=== PATIENT | male | born 1955 | race Caucasian/White ===

== ENCOUNTER → 2020-02-28 | Outpatient (CLI) | payer BC | END | disposition home or self-care (01) | LOC: US 07:22 | PROVIDERS: ATTEND Internal Medicine Interventional Cardiology | DX: I16.0 Hypertensive urgency (principal); I12.9 Hypertensive chronic kidney disease with stage 1 through stage 4 chronic kidney disease, or unspecified chronic kidney disease; N18.9 Chronic kidney disease, unspecified; I70.1 Atherosclerosis of renal artery; N28.1 Cyst of kidney, acquired | CPT/HCPCS: 76770; 93976 ==

== ENCOUNTER 2021-10-13 08:40 | Outpatient (RCR) | payer MEDICARE, OTHER | END 2021-10-28 | disposition home or self-care (01) | LOC: WCC 08:40 | PROVIDERS: ATTEND Family Medicine | DX: C09.9 Malignant neoplasm of tonsil, unspecified (principal); M27.2 Inflammatory conditions of jaws; Y84.2 Radiological procedure and radiotherapy as the cause of abnormal reaction of the patient, or of later complication, without mention of misadventure at the time of the procedure; N18.30 Chronic kidney disease, stage 3 unspecified; I10 Essential (primary) hypertension; I26.99 Other pulmonary embolism without acute cor pulmonale; E78.5 Hyperlipidemia, unspecified; I69.951 Hemiplegia and hemiparesis following unspecified cerebrovascular disease affecting right dominant side; J44.9 Chronic obstructive pulmonary disease, unspecified; K21.9 Gastro-esophageal reflux disease without esophagitis ==

== ENCOUNTER → 2021-12-01 | Outpatient (CLI) | payer MEDICARE, OTHER ==
[2021-12-01 08:42] LABS: ABG PH 7.38 (7.35-7.45)
[2021-12-01 08:43] LABS: ABG HCO3 26 mmol/L (22-26); ABG PCO2 43 mmHg (35-45); ABG PO2 97 mmHg (80-105)
[2021-12-01 08:44] LABS: ABG TCO2 27
== END ==
LOC: RESP 07:25
PROVIDERS: ATTEND Family Medicine
DX: Z01.810 Encounter for preprocedural cardiovascular examination (principal); Z01.811 Encounter for preprocedural respiratory examination; Y84.2 Radiological procedure and radiotherapy as the cause of abnormal reaction of the patient, or of later complication, without mention of misadventure at the time of the procedure
CPT/HCPCS: 36415; 71046; 82805; 93005

== ENCOUNTER → 2021-12-29 | Outpatient (RCR) | payer MEDICARE, OTHER | LOC: WCC 12-08 10:31 | PROVIDERS: ATTEND Family Medicine | DX: C09.9 Malignant neoplasm of tonsil, unspecified (principal); Y84.2 Radiological procedure and radiotherapy as the cause of abnormal reaction of the patient, or of later complication, without mention of misadventure at the time of the procedure; L59.8 Other specified disorders of the skin and subcutaneous tissue related to radiation; M27.2 Inflammatory conditions of jaws; E78.5 Hyperlipidemia, unspecified; N18.30 Chronic kidney disease, stage 3 unspecified; I10 Essential (primary) hypertension; I26.99 Other pulmonary embolism without acute cor pulmonale; I69.951 Hemiplegia and hemiparesis following unspecified cerebrovascular disease affecting right dominant side; J44.9 Chronic obstructive pulmonary disease, unspecified; K21.9 Gastro-esophageal reflux disease without esophagitis; Z01.810 Encounter for preprocedural cardiovascular examination; Z01.811 Encounter for preprocedural respiratory examination | CPT/HCPCS: 99212 ×2; G0277 ×8 ==

== ENCOUNTER → 2022-01-28 | Outpatient (RCR) | payer MEDICARE, OTHER ==
[~2022-01-28] MED LIST: SILVER SULFADIAZINE 50GM CREAM ONE
== END ==
LOC: WCC 12-30 09:38
PROVIDERS: ATTEND Family Medicine
DX: C09.9 Malignant neoplasm of tonsil, unspecified (principal); L59.8 Other specified disorders of the skin and subcutaneous tissue related to radiation; Y84.2 Radiological procedure and radiotherapy as the cause of abnormal reaction of the patient, or of later complication, without mention of misadventure at the time of the procedure; M27.2 Inflammatory conditions of jaws; I26.99 Other pulmonary embolism without acute cor pulmonale; I69.951 Hemiplegia and hemiparesis following unspecified cerebrovascular disease affecting right dominant side; N18.30 Chronic kidney disease, stage 3 unspecified; I10 Essential (primary) hypertension; J44.9 Chronic obstructive pulmonary disease, unspecified; E78.5 Hyperlipidemia, unspecified; K21.9 Gastro-esophageal reflux disease without esophagitis; Z01.810 Encounter for preprocedural cardiovascular examination; Z01.811 Encounter for preprocedural respiratory examination
CPT/HCPCS: 99212; G0277 ×18

== ENCOUNTER 2022-02-03 13:43 | Outpatient (RCR) | payer MEDICARE, OTHER | END 2022-02-28 | LOC: WCC 13:43 | PROVIDERS: ATTEND Family Medicine | DX: C09.9 Malignant neoplasm of tonsil, unspecified (principal); Y84.2 Radiological procedure and radiotherapy as the cause of abnormal reaction of the patient, or of later complication, without mention of misadventure at the time of the procedure; I26.99 Other pulmonary embolism without acute cor pulmonale; L59.8 Other specified disorders of the skin and subcutaneous tissue related to radiation; N18.30 Chronic kidney disease, stage 3 unspecified; M27.2 Inflammatory conditions of jaws; I10 Essential (primary) hypertension; J44.9 Chronic obstructive pulmonary disease, unspecified; E78.5 Hyperlipidemia, unspecified; I69.951 Hemiplegia and hemiparesis following unspecified cerebrovascular disease affecting right dominant side; K21.9 Gastro-esophageal reflux disease without esophagitis; Z01.810 Encounter for preprocedural cardiovascular examination; Z01.811 Encounter for preprocedural respiratory examination | CPT/HCPCS: G0277 ×4 ==